=== PATIENT | female | born 1975 | race Caucasian/White ===

== ENCOUNTER → 2016-10-29 | Outpatient (CLI) | payer MEDICAID | LOC: FCPNEURO 21:00 | PROVIDERS: ATTEND Psychiatry & Neurology Sleep Medicine | DX: G47.33 Obstructive sleep apnea (adult) (pediatric) (principal) ==

== ENCOUNTER 2018-06-11 19:43 | Inpatient (IN) | payer MEDICAID ==
--- NOTE | 2018-06-11 20:13 | EDPHY ---
General - History Smoking Status: Former smoker Time Seen by Provider: 06/11/18 20:13 Narrative: CLINICAL IMPRESSION: Intractable headache, pupillary abnormality ASSESSMENT/PLAN: Patient is a 43-year-old female with multiple comorbidities who presents to the emergency department complaining of left-sided head pressure, red eyes and worsening pruritic rash. Patient is afebrile she is uncomfortable appearing however not toxic-appearing. Patient with notable injected conjunctiva bilaterally, mildly irregular pupils however equally reactive, mild left upper lid lag; neurological exam is otherwise grossly normal with no focal deficit. CBC revealed no evidence of leukocytosis, sed rate was within normal limits and her basic metabolic panel was grossly unremarkable. Intra-ocular pressures 19, within normal limits. 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 The patient was given multiple doses of IV narcotics with very minimal relief of her symptoms. It is unclear the exact etiology of her constellation of symptoms however there was no evidence of acute stroke, acute glaucoma, Morelia Dsouza syndrome, orbital or periorbital cellulitis. Sed rate was normal, less likely this could be temporal arteritis however the patient was given prednisone in the emergency department. She has had no constitutional symptoms to include fever or chills and has had no cough runny nose or congestion; do not suspect etiology such as measles. There were no signs of meningismus, do not suspect meningitis. Considered other etiologies including Lg syndrome, neuritis and trigeminal neuralgia. The patient remained hemodynamically stable, she will be admitted to the hospitalist service for further observation and management. I spoke directly with Dr. Rodríguez who will be the admitting physician. DIFFERENTIAL DX: Headache including but not limited to subarachnoid hemorrhage, migraine headache , tension headache, optic neuritis, trigeminal neuralgia, acute glaucoma and infectious causes such as meningitis, pharyngitis and sinusitis. ED COURSE: 2029: Discussed case with Dr. Gore, she will also evaluate this patient. 2058: Dr. Cha with Radiology called, CT head with no acute findings. 2137: IOP 19, normal limits 2203: Case discussed with hospitalist Dr. Nilton Gibson, she will be admitted under observation CHIEF COMPLAINT: Head pressure, facial swelling HPI: Patient is a 43-year-old female with multiple comorbidities including hypertension, diabetes, lupus, Ehrlos Danlos syndrome, mast cell disorder, chronic headaches and intermittent chronic rash who presents to the emergency department with worsening extremity rash over the last week as well as left- sided head pressure and swelling that has been escalating over the last 6 days. Patient reports last she started to develop some pressure located behind her left eye, along her christian radiating to the back of her head. She also noticed some redness of her bilateral eyes that has been present over the last week. She denies any eye pain or visual changes. She states that the pressure sensation is only left-sided, does not cross the midline. She has never experienced anything like this before, does not feel anything like her chronic headaches. She denies sudden onset, episodes are brief however escalating. She has had no focal weakness, difficulty with speech or ataxia. She reports associated swelling that started this weekend that is located over her christian. She denies any facial rash or lesions. She denies any neck stiffness, fever, chills, chest pain, cough or shortness of breath. She has been dealing with an extremity rash which they believe is linked to lupus, reports steroid therapy over a week ago and the rash got worse after she stopped her steroids. She describes the rash is very itchy. She has not started any new medications, there has been no changes in her detergents, lotions, soaps or other products. Patient also endorses currently being worked up for possible Chiari malformation in light of chronic neck pain. PMH: Diabetes, hypertension, Ehrlos Danlos syndrome, lupus, chronic headaches, mast cell disorder Family History: Noncontributory Social History: Denies illicit drug use, denies smoking REVIEW OF SYSTEMS: All other systems negative Constitutional: Decreased appetite. No fever, no chills. Eyes: Red eyes. No discharge, vision change. ENT: No sore throat, congestion, ear pain. Cardiovascular: No chest pain, no palpitations. Respiratory: No cough, no shortness of breath. Gastrointestinal: No abdominal pain, no vomiting, diarrhea. Genitourinary: No hematuria, dysuria, flank pain, pelvic pain Musculoskeletal: No back pain, joint swelling, joint pain, myalgias. Skin: Rash. Neurological: Left-sided head pressure. No dizziness, weakness. PHYSICAL EXAM: General Appearance: Obese, very uncomfortable however not toxic-appearing. HENT: Normocephalic, atraumatic. Bilateral external ears are normal. Bilateral tympanic membranes are normal with pearly mittal reflex. Patient with tenderness to palpation along the left christian, unable to palpate the temporal artery. There is some appreciable mild edema overlying the christian into the scalp. There is no overlying erythema or calor. Nares are clear, mucosa is pink. Oropharynx is clear, uvula is midline. There is no tonsillar enlargement or exudate. The dentition is normal. Eyes: Left pupil is slightly larger than the right pupil however equally reactive, no acute vision change, nystagmus, swelling, discharge, pain or photosensitivity. Left lid slightly slower and closure however full strength. Conjunctiva injected bilaterally. Neck: Supple, nontender, no lymphadenopathy, no midline pain, FROM, no meningismus. Respiratory: There are no retractions, lungs are clear to auscultation. Cardiac: Regular rate and rhythm, no murmurs or gallops. Gastrointestinal: Abdomen is soft, nontender, bowel sounds normal, no masses/ hernia, no rigidity, guarding or focal peritoneal findings. Neurological: Alert and oriented x 3, Neurological exam grossly normal with no focal deficit, normal gait no ataxia, DTR's intact, normal sensation and strength Skin: Warm, dry, no nodules on palpation. Bilateral upper and lower extremities with maculopapular erythematous rash predominantly noted on the upper inner arms. Musculoskeletal: Extremities are symmetrical, full range of motion, no tenderness, deformity, swelling, or erythema. Psychiatric: Patient is oriented X 3, there is no agitation. MEDICAL DECISION MAKING: Patient was seen independently. Secondary supervising physician at time of evaluation was Dr. Gore, she also evaluated this patient. Diagnosis: . New, requires workup Summary: See Assessment and Plan for summary of ED visit Clinical lab tests: ordered / reviewed. Independent visualization of images, tracing, or specimens: Yes. Decision to obtain medical records or history from someone other than the patient: Yes, patient's home healthcare Review / Summarize previous medical records: Yes Discussed patient with another provider: Yes, Dr. Gore, Dr. Rodríguez Patient Progress: Stable, admit . (Anahy Miguel) - Diagnostics Imaging Results: Imaging Impressions Head CT 06/11/18 20:28 Impression: No acute intracranial process. Findings and recommendations discussed with JUDY Russ at 2058 hour, 06/11. Head CTA 06/11/18 21:36 Impression: 1. 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 Otherwise, normal CT angiogram of the head and neck. 2. Enlarging left thyroid nodule. Recommend ultrasound characterization. Stenoses are calculated using [place] Symptomatic Carotid Endarterectomy Trial (NASCET) criteria. Findings and recommendations discussed with JUDY Russ at 2228 hour, 06/11. Neck CTA 06/11/18 21:36 Impression: 1. 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 Otherwise, normal CT angiogram of the head and neck. 2. Enlarging left thyroid nodule. Recommend ultrasound characterization. Stenoses are calculated using [place] Symptomatic Carotid Endarterectomy Trial (NASCET) criteria. Findings and recommendations discussed with JUDY Russ at 2228 hour, 06/11. Discussion: I evaluated and participated in the management of the patient. I also evaluated the patient independently. My co-signature indicates that I have reviewed this chart and I agree with the findings and plan of care as documented. My personal H&P findings include: 43-year-old female with multiple medical problems including most notably Erlher Danlos syndrome, hypertension, diabetes, recent diagnosis of lupus who is now presenting with left-sided headache associated with significant soft tissue swelling of the left cheek, left temporal area, injection in the left eye, left pupil slightly larger than the right, slight lid leg on the left, and tenderness across the temporal artery. Patient reports her headache pain has been present for about 5 days, but she develops intermittent worsening of the pain in a type of spasmodic pattern. Her examination is remarkable for slight erythema and visible soft tissue swelling of the left upper cheek, left lateral periorbital area, and across the left christian area. Bilateral conjunctival injection. No rashes noted on the face. Extraocular movements are intact. Pupil is: Left pupil 4 mm, right 3-2 mm , both pupils are briskly reactive. Extraocular movements are intact. Poor dentition is noted but no obvious dental caries. Initial concern was for temporal arteritis. Patient's sed rate is normal. She did receive 60 mg of prednisone by mouth. CT scan including CT a was negative for any type of intracranial hemorrhage, no obvious inflammatory process affecting the extraocular movements, no aneurysm affecting the 3rd cranial nerve is identified. Patient did not receive much in pain relief from Dilaudid as she is chronically on Dilaudid. She did receive fentanyl. She will be admitted to hospitalist service for further evaluation of her significant headache, cranial nerve palsy , facial swelling. (Lucita Gore) - Objective Vital Signs: Initial Vital Signs Temperature (C) 36.6 C 06/11/18 19:46 Heart Rate 96 06/11/18 19:46 Respiratory Rate 18 06/11/18 19:46 Blood Pressure 137/87 H 06/11/18 19:46 O2 Sat (%) 92 06/11/18 19:46 O2 Delivery Mode Nasal Cannula O2 (L/minute) 2 Allergies/Adverse Reactions: ketorolac tromethamine [From Toradol] Allergy (Mild, Verified 06/11/18 19:53) headache Penicillins Allergy (Mild, Verified 06/11/18 19:53) Rash ascorbic acid [From Cevalin] Allergy (Verified 06/11/18 19:53) gabapentin Allergy (Verified 06/11/18 19:53) pregabalin [From Lyrica] Allergy (Verified 06/11/18 19:53) rizatriptan [From Maxalt] Allergy (Verified 06/11/18 19:53) sumatriptan Allergy (Verified 06/11/18 19:53) tramadol Allergy (Verified 06/11/18 19:53) Home Medications: Medication Instructions Recorded Cholecalciferol Vit D3 [Vitamin D3 5,000 units PO DAILY 04/28/14 (OTC)] HYDROmorphone HCL [Exalgo] 64 mg PO DAILY@2300 04/28/14 Lisinopril/Hctz 10/12.5 mg 2 ea PO DAILY 04/28/14 [Zestoretic/Prinzide 10/12.5MG (RX)] Naproxen 500 mg PO BID 04/28/14 Ondansetron Odt [Zofran Odt 4 mg 8 mg PO TID PRN 04/28/14 (RX)] Tapentadol HCl [Nucynta] 100 mg PO Q4 PRN 04/28/14 Ondansetron Odt [Zofran Odt 4 mg 8 mg PO DAILY@04/29/14 (RX)] Laboratory Results: Laboratory Results 06/11/18 20:20 06/11/18 20:20 06/11/18 06/11/18 20:20 20:20 WBC 7.96 10^3/uL 10^3/uL (3.80-9.50) RBC 5.00 10^6/uL 10^6/uL (4.18-5.33) Hgb 13.6 g/dL g/dL (12.6-16.3) Hct 40.7 % % (38.0-47.0) MCV 81.4 fL L fL (81.5-99.8) MCH 27.2 pg L pg (27.9-34.1) MCHC 33.4 g/dL g/dL (32.4-36.7) RDW 14.2 % % (11.5-15.2) Plt Count 242 10^3/uL 10^3/uL (150-400) MPV 10.2 fL fL (8.7-11.7) Neut % (Auto) 50.2 % % (39.3-74.2) Lymph % (Auto) 38.2 % % (15.0-45.0) [place] % (Auto) 8.4 % % (4.5-13.0) Eos % (Auto) 2.6 % % (0.6-7.6) Baso % (Auto) 0.3 % % (0.3-1.7) Nucleat RBC Rel Count 0.0 % % (0.0-0.2) Absolute Neuts (auto) 4.00 10^3/uL 10^3/uL (1.70-6.50) Absolute Lymphs (auto) 3.04 10^3/uL H 10^3/uL (1.00-3.00) Absolute Monos (auto) 0.67 10^3/uL 10^3/uL (0.30-0.80) Absolute Eos (auto) 0.21 10^3/uL 10^3/uL (0.03-0.40) Absolute Basos (auto) 0.02 10^3/uL 10^3/uL (0.02-0.10) Absolute Nucleated RBC 0.00 10^3/uL 10^3/uL (0-0.01) Immature Gran % 0.3 % % (0.0-1.1) Immature Gran # 0.02 10^3/uL 10^3/uL (0.00-0.10) ESR 19 MM/HR MM/HR (0-20) Sodium 137 mEq/L mEq/L (135-145) Potassium 4.9 mEq/L mEq/L (3.5-5.2) Chloride 103 mEq/L mEq/L (97-110) Carbon Dioxide 29 mEq/l mEq/l (22-31) Anion Gap 5 mEq/L L mEq/L (6-14) BUN 9 mg/dL mg/dL (7-23) Creatinine 0.7 mg/dL mg/dL (0.6-1.0) Estimated GFR > 60 Glucose 94 mg/dL mg/dL (70-100) Calcium 9.1 mg/dL mg/dL (8.5-10.4) Total Bilirubin 0.9 mg/dL mg/dL (0.1-1.4) AST 71 IU/L H IU/L (14-46) ALT 22 IU/L IU/L (9-52) Alkaline Phosphatase 92 IU/L IU/L (38-126) Total Protein 7.8 g/dL g/dL (6.3-8.2) Albumin 4.4 g/dL g/dL (3.5-5.0) Specimen Hemolysis 208 Medications Given: Discontinued Medications Fentanyl (Sublimaze) 50 mcg IVP ONCE ONE Stop: 06/11/18 21:25 Last Admin: 06/11/18 21:48 Dose: 50 mcg Fentanyl (Sublimaze) 50 mcg IVP ONCE ONE Stop: 06/11/18 22:15 Last Admin: 06/11/18 22:19 Dose: 50 mcg Hydromorphone HCl (Dilaudid) 0.5 mg IVP EDNOW ONE Stop: 06/11/18 20:59 Last Admin: 06/11/18 21:13 Dose: 0.5 mg Prednisone (Prednisone) 60 mg PO EDNOW ONE Stop: 06/11/18 20:53 Last Admin: 06/11/18 21:13 Dose: 60 mg Departure - Departure Disposition: [facility] Clinical Impression: Facial swelling, Anisocoria, Lid lag Headache Qualifiers: Headache type: unspecified Headache chronicity pattern: acute headache Intractability: intractable Qualified Code(s): R51 - Headache Condition: Fair
[2018-06-11 20:44] LABS: PLATELET COUNT 242 10^3/uL (150-400)
[2018-06-11] MEDS ORDERED: predniSONE 20 MG TAB PO ONE (20:52)
[2018-06-11] MEDS ORDERED: HYDROmorphONE/DILAUDID 2 MG/ML INJ IVP ONE (20:58)
[2018-06-11] MEDS ORDERED: fentaNYL 100 MCG/2 ML INJ IVP ONE ×2 (21:24→22:14)
[2018-06-11] MEDS ORDERED: IOHEXOL 350mgI/ML (OMNIPAQUE) 150 ML BTL IV ONE (21:40)
[2018-06-11] MEDS ORDERED: ONDANSETRON DISINTEGRATING 4 MG TAB PO PRN (22:58)
[2018-06-11] MEDS ORDERED: diphenhydrAMINE 25 MG CAP PO PRN (22:58)
[2018-06-11] MEDS ORDERED: HYDROCODONE/APAP 5/325 TAB PO PRN (22:58)
[2018-06-11] MEDS ORDERED: ACETAMINOPHEN 325 MG TAB PO PRN (22:58)
[2018-06-11] MEDS ORDERED: ONDANSETRON 4 MG/2 ML VIAL IVP PRN (22:58)
[2018-06-12] MEDS: NS 1,000 ML IV SCH ×2 (00:26→18:42)
[2018-06-12] MEDS: LORazepam 2 MG/ML INJ IVP PRN ×2 (00:26→11:10)
[2018-06-12] MEDS ORDERED: hydrOXYzine HCL 25 MG TAB PO PRN (01:42)
[2018-06-12] MEDS ORDERED: DIPHENHYDRAMINE CREAM TP PRN (01:42)
--- NOTE | 2018-06-12 01:42 | PDGENHP ---
History and Physical - Chief Complaint left temporal/facial pain and swelling, blurry vision - History of Present Illness Source - Patient provides history and appears reliable. Patient's adult daughter at bedside supplements details. EMR was reviewed and case discussed with accepting hospitalist any ED provider. HPI-this is a very pleasant 43-year-old female with past medical history significant for either Danlos syndrome, mast cell activation syndrome, diabetes , chronic pain, complex migraine headache who presents emergency department today with complaints of 1 week history of worsening left temporal pain and sensitivity. Patient reports chronic blurry vision nothing acute. She reports her temporal pain is worsened with any kind of brushing or touch. She has not had any fevers or chills. In the last several days patient also has noted increasing swelling over the left side of her shinto forehead and eye. Daughter notes that she is not able to close her eyelid very well. Patient denies any vision loss in left eye but it has been a little irritated. 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 Patient has been noting some increased swelling in her hands as well as that left side of her face. She was recently reported to have had a ERIC screening that returned positive but she is waiting the titers. Additionally patient has reported intermittent episodes of right- sided weakness. She states that she was initially diagnosed with myasthenia gravis however she subsequently was seen by Neurology during a hospital admission in April of was diagnosed with complex migraines. She notes that these symptoms seemed to get exacerbated when she is increasingly fatigued. She also reports that over the last in several weeks she has developed some intermittent dysphagia. She feels like solids get stuck in her throat. She has a follow-up appointment with GI in the upcoming weeks. Patient is concerned that she may have developed trigeminal neuralgia. Patient also is complaining of a rash that is extending from her on the distal arm to her axilla and chest along the upper part of her left arm. She states that is quite itchy. It is worse at nighttime. She is trying not to scratch Benadryl and Atarax have not been helping with her symptoms significantly. Patient reports that she did soak in Epsom salt and that did seem to the temporarily alleviate her symptoms. She denies any new exposures to detergents, lotions or perfumes. History Information - Allergies/Home Medication List Allergies/Adverse Reactions: ketorolac tromethamine [From Toradol] Allergy (Mild, Verified 06/11/18 19:53) headache Penicillins Allergy (Mild, Verified 06/11/18 19:53) Rash ascorbic acid [From Cevalin] Allergy (Verified 06/11/18 19:53) gabapentin Allergy (Verified 06/11/18 19:53) pregabalin [From Lyrica] Allergy (Verified 06/11/18 19:53) rizatriptan [From Maxalt] Allergy (Verified 06/11/18 19:53) sumatriptan Allergy (Verified 06/11/18 19:53) tramadol Allergy (Verified 06/11/18 19:53) I have personally reviewed and updated: family history, medical history, social history, surgical history - Past Medical History Additional medical history: Dm 2, Becki-Danlos, 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 Patient reports that she has received Botox injections in the past for her migraines. - Surgical History Additional surgical history: x3, tonsillectomy adenoidectomy, appendectomy - Family History Additional family history: Multiple family members with thyroid dysfunction. Mother with history of Becki-Danlos, mast cell dysfunction, dm 2, heart disease , cirrhosis due to HCV. - Social History Smoking Status: Former smoker Alcohol Use: None Drug Use: Marijuana (Topical) Review of Systems Review of Systems: ROS: 10pt was reviewed & negative except for what was stated in HPI & below Constitutional: Reports: no symptoms EENMT: Reports: no symptoms Cardiac: Reports: no symptoms Respiratory: Reports: no symptoms Gastrointestinal: Reports: nausea. Denies: abdominal pain, other (Decreased appetite. Patient reports that she is unable to keep solid foods down) Genitourinary: Reports: no symptoms Muscolosketal: Reports: back pain, joint pain (His bilateral hand), neck pain ( Posterior neck pain, suboccipital.) Skin: Reports: rash (See HPI) Neurological: Reports: headache, paresthesia (Left shinto & forehead), weakness (Right extremities See HPI) Hematologic/Lymphatic: Reports: no symptoms Physical Exam Physical Exam: Selected Entries 06/11/18 19:46 Blood Pressure Automatic Method Heart Rate 96 Respiratory 18 Rate O2 Sat (%) 92 Temperature (C) 36.6 C Blood Pressure 137/87 H Mean Arterial 103 H Pressure (MAP) O2 Delivery Room Air Mode Temperature Oral Source Temp Pulse Resp BP Pulse Ox 36.7 C 85 17 153/98 H 92 06/12/18 00:00 06/12/18 00:00 06/12/18 00:00 06/12/18 00:00 06/12/18 00:00 O2 (L/minute) 2 Constitutional: chronically ill appearing, obese, other (NAD. Pleasant obese female is lying quietly in bed. She wakes easily to name. Her daughter is at bedside.) Eyes: EOMI, No PERRL (Patient pupils are asymmetric, with the left pupil greater than the right. Lens reflex is appreciated on the right eye.), No scleral injection Ears, Nose, Mouth, Throat: moist mucous membranes, poor dentition (Dentition intact, gingivitis. No evidence of abscess.), other (No nasal discharge.) Cardiovascular: regular rate and rhythym, no murmur, rub, or gallop (Slightly distant heart sounds.), pulses symmetric bilaterally, No edema Peripheral Pulses: 2+: dorsalis-pedis (R), dorsalis-pedis (L) Respiratory: no respiratory distress, no rales or rhonchi (Exam limited due to body habitus lung sounds are slightly distant.), No expiratory wheeze, No inspiratory crackles Gastrointestinal: normoactive bowel sounds, soft, non-tender abdomen, no palpable masses, No guarding, No distension Genitourinary: no bladder tenderness, No pozo in urethra Skin: warm, normal color, rash (Patient with all circumscribed maculopapular lesions. No vesicular lesions. No pustular lesions. There is no evidence of tracking and patient's rash does not localized to her digits or creases.) Musculoskeletal: full muscle strength (Patient able to sit up independently. Moves all extremities.), pain with ROM (Patient complains of some stiffness and difficulties moving with her fingers.), No generalized weakness Neurologic: AAOx3, sensation intact bilaterally, other (hyperesthesia on the left shinto.) Psychiatric: interacting appropriately, not encephalopathic, thought process linear, anxious, other (Patient very pleasant cooperative.), No poor insight, No poor judgement, No poor memory Lab Data & Imaging Review 06/12/18 05:15 06/12/18 05:15 WBC 7.96 10^3/uL (3.80-9.50) 06/11/18 20:20 RBC 5.00 10^6/uL (4.18-5.33) 06/11/18 20:20 Hgb 13.6 g/dL (12.6-16.3) 06/11/18 20:20 Hct 40.7 % (38.0-47.0) 06/11/18 20:20 MCV 81.4 fL (81.5-99.8) L 06/11/18 20:20 MCH 27.2 pg (27.9-34.1) L 06/11/18 20:20 MCHC 33.4 g/dL (32.4-36.7) 06/11/18 20:20 RDW 14.2 % (11.5-15.2) 06/11/18 20:20 Plt Count 242 10^3/uL (150-400) 06/11/18 20:20 MPV 10.2 fL (8.7-11.7) 06/11/18 20:20 Neut % (Auto) 50.2 % (39.3-74.2) 06/11/18 20:20 Lymph % (Auto) 38.2 % (15.0-45.0) 06/11/18 20:20 [place] % (Auto) 8.4 % (4.5-13.0) 06/11/18 20:20 Eos % (Auto) 2.6 % (0.6-7.6) 06/11/18 20:20 Baso % (Auto) 0.3 % (0.3-1.7) 06/11/18 20:20 Nucleat RBC Rel Count 0.0 % (0.0-0.2) 06/11/18 20:20 Absolute Neuts (auto) 4.00 10^3/uL (1.70-6.50) 06/11/18 20:20 Absolute Lymphs (auto) 3.04 10^3/uL (1.00-3.00) H 06/11/18 20:20 Absolute Monos (auto) 0.67 10^3/uL (0.30-0.80) 06/11/18 20:20 Absolute Eos (auto) 0.21 10^3/uL (0.03-0.40) 06/11/18 20:20 Absolute Basos (auto) 0.02 10^3/uL (0.02-0.10) 06/11/18 20:20 Absolute Nucleated RBC 0.00 10^3/uL (0-0.01) 06/11/18 20:20 Immature Gran % 0.3 % (0.0-1.1) 06/11/18 20:20 Immature Gran # 0.02 10^3/uL (0.00-0.10) 06/11/18 20:20 ESR 19 MM/HR (0-20) 06/11/18 20:20 Sodium 137 mEq/L (135-145) 06/11/18 20:20 Potassium 4.9 mEq/L (3.5-5.2) 06/11/18 20:20 Chloride 103 mEq/L (97-110) 06/11/18 20:20 Carbon Dioxide 29 mEq/l (22-31) 06/11/18 20:20 Anion Gap 5 mEq/L (6-14) L 06/11/18 20:20 BUN 9 mg/dL (7-23) 06/11/18 20:20 Creatinine 0.7 mg/dL (0.6-1.0) 06/11/18 20:20 Estimated GFR > 60 06/11/18 20:20 Glucose 94 mg/dL (70-100) 06/11/18 20:20 Calcium 9.1 mg/dL (8.5-10.4) 06/11/18 20:20 Total Bilirubin 0.9 mg/dL (0.1-1.4) 06/11/18 20:20 AST 71 IU/L (14-46) H 06/11/18 20:20 ALT 22 IU/L (9-52) 06/11/18 20:20 Alkaline Phosphatase 92 IU/L (38-126) 06/11/18 20:20 Total Protein 7.8 g/dL (6.3-8.2) 06/11/18 20:20 Albumin 4.4 g/dL (3.5-5.0) 06/11/18 20:20 Specimen Hemolysis 208 06/11/18 20:20 Imaging Review: Head WO IV Contrast History: Left head pressure, temporal artery pain. Comparison: None available. Technique: Dose reduction techniques were utilized. Findings: No acute large vessel ischemic infarct, hemorrhage, or extra-axial fluid collection. Lateral ventricles are normal in size and configuration for the patient's stated age. There is no midline shift and the basal cisterns are not effaced. The mittal-white junction is distinct. There is no displaced skull fracture. The paranasal sinuses and mastoid air cells are clear. Impression: No acute intracranial process. Findings and recommendations discussed with JUDY Russ at 2058 hour, 06/11. Dictated By: Javier Cha MD CT Angiogram Head and Neck With Contrast History: Head ache. Comparison: Unenhanced CT head same day. April 29, 2014 Technique: Axial contrast-enhanced images were obtained from the vertex through the thoracic inlet following the uneventful intravenous administration of 85 mL Isovue-370. Multiplanar reformations were performed. Dose reduction techniques were utilized. Findings: Angiogram Head: The A1 and A2 segments of the anterior cerebral arteries are patent. The M1 and M2 segments of the middle cerebral arteries are patent. The anterior communicating artery is normal. The basilar artery and P1 and P2 segments of the posterior cerebral arteries are patent. No significant stenoses are identified. There is no visible aneurysm. There is no visible hemorrhage or vascular malformation. Angiogram Neck: The visible aorta is normal caliber. Conventional three-vessel arch anatomy is present. There is no significant stenosis in the common and internal carotid arteries . There is no significant vertebral artery stenosis . Hypoplastic versus spastic distal left vertebral artery noted. The subclavian arteries are patent in their visualized extent. No pathologically enlarged lymph nodes are identified. No aggressive osseous lesions are present. The lung apices are clear. There is a 1.3 cm left thyroid nodule which appears increased in size since 2013. Impression: 1. 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 Otherwise, normal CT angiogram of the head and neck. 2. Enlarging left thyroid nodule. Recommend ultrasound characterization. Stenoses are calculated using [place] Symptomatic Carotid Endarterectomy Trial (NASCET) criteria. Findings and recommendations discussed with JUDY Russ at 2228 hour, 06/11. Visualized and Interpreted imaging results: Yes Assessment & Plan Assessment: this is a very pleasant 43-year-old female with past medical history significant for either Danlos syndrome, mast cell activation syndrome, diabetes , chronic pain, complex migraine headache who presents emergency department today with complaints of 1 week history of worsening left temporal pain and sensitivity. #Anisocoria (Acute) with left temporal pain/paresthesias. ddx including Lg' s syndrome vs. myesthenia vs trigeminal neuralgia vs. botulism (no recent botox injections) vs less likely temporal arteritis vs less likely CVA. CT head, CTA Head and neck with hypoplastic vs spastic distal vertebral artery otherwise normal. neurology consult requested. #Facial swelling/pain (Acute) left - no evidence of cellulitis or report of dental abscess. Steroid #thyroid nodule - noted on CT of neck. US will be ordered. check TSH. #dysphagia - dietary consult, ST eval. #Rash - ddx mast cell response vs folliculitis. no evidence of tracking to suggest scabies. continue with anti-histamines, topical and oral steroids for now. #Becki Danlos #migraine AVITIA - supportive care #chronic pain - continue pt oxy #DM II - ADA diet. insulin sliding scale. FEN - ADA diet. monitor electrolytes. PPX - SCDs. consider lovenox if should stay additional day COR - FULL Dispo - Patient admitted to observation status pending studies as above and neurology recommendations.
[2018-06-12] MEDS: HYDROmorphONE/DILAUDID 1 MG/ML INJ IVP PRN ×3 (01:45→11:11)
[2018-06-12] MEDS: oxyCODONE IR 15 MG TAB PO PRN ×3 (01:45→12:32)
[2018-06-12 05:39] LABS: PLATELET COUNT 231 10^3/uL (150-400)
[2018-06-12] MEDS: HYDROCORTISONE 1% CREAM TP SCH ×2 (08:01→20:14)
[2018-06-12] MEDS ORDERED: predniSONE 20 MG TAB PO SCH (09:00)
[2018-06-12] MEDS ORDERED: HYOSCYAMINE SULFATE 0.125 MG TAB PO PRN (09:37)
--- NOTE | 2018-06-12 10:00 | NEUROPROG ---
Assessment: [id number] - Neurology Consult: - CC: Mary Waddell consulted neurology for left temporal/facial pain and blurry vision. Results placed in EMR for her review. - HPI: Pt with prior history of migraines reports 1 week of worsening left temporal pain associated with blurry vision when she presented to [facility] ER on 06/11/18. She also felt she has swelling over the left judaism region. Pt also noted intermittent episodes of right sided weakness. She reported seeing neurology in April 2018 and being diagnosed with complex migraines. Head CT and CTA head/neck showed no acute findings but did show left vert with hypoplastic versus spastic findings. ESR 19 (normal) so unlikely to be giant cell temporal arteritis (young age, low ESR). I initially saw pt on 06/12/18. Neurologic exam normal and no clear swelling around left temporal lobe. I suspected her head pain and intermittent right sided weakness is from her complex migraines. However, recommend brain MRI wwo to ensure no underlying structural problem. Pt has a number of complex autoimmune conditions so this may be involved in her symptoms. I would also recommend having an radio aerial installer evaluate her left eye to ensure no uveitis. If brain MRI wwo unremarkable then I would recommend pt have her PCM refer her to [facility] Neurology Department to establish care with a neurologist at a tertiary care center given her complicated medical history. - PMHx: DM2, EDS, AI uveitis in R eye, mast cell activation syndrome, migraines associated with right sided weakness - SHx: former tobacco use FHx: thyroid dysfunction, EDS, AI issues - ROS: Pt denied acute fever, total vision loss, active severe chest pain, respiratory failure, total body severe rash, total bowel/bladder incontinence, psychosis, active seizures, or active bleeding - O: VS reviewed General: Alert Eyes: Fundoscopic exam not able to visualize optic disks CV: Heart RRR, no murmur, no carotid bruit Lungs: Clear to auscultation bilaterally, no rhonchi or rales Neuro: - Mental: . Oriented x person/place/date . concentration appears normal . speech fluency/comprehension normal . memory appears normal . fund of knowledge appear intact - Cranial Nerves: . II: PERRL, VFFTC . III/IV/: EOMI, no nystagmus, normal smooth pursuits, no Ptosis . V: facial sensation intact to LT . VII: face symmetric to eye closure and smile . VIII: hearing intact to conversation . IX/X: uvula raises symmetrically . XI: SCM 5/5 B/L strength . XII: tongue protrudes midline w/nl strength - Motor: . Tone: normal tone in all 4 extremity . Strength: no pronator drift, strength 5/5 throughout (B/L delt, bic, tri, hand railroad hand, hf/he, df/pf) - Reflexes: B/L bic 2/4 - Sensory: all 4 extremity intact to light touch - Coord: [id number] wnl, VEL wnl, [id number] wnl - Gait: deferred - Labs: 06/11/18- CBC unremarkable, ESR 19, Chem AST 71H - Rads: 06/11/18- Head CT wo: no acute intracranial process (I personally visualized the images on 06/12/18) 06/11/18- CTA head/neck: Hypoplastic versus spastic left distal vertebral artery. Otherwise, normal CT angiogram of the head and neck. Enlarging left thyroid nodule - Assessment: 1. Complex Migraines with episodic right sided weakness - 2. Thyroid nodule noted incidentally on head/neck CTA on 06/11/18: Defer management to hospitalist - 3. Autoimmune illnesses - 4. Possible spastic versus left distal vert artery: likely a benign finding but could be vasospasm from migraine disorder (does not require any treatment in that case). However, pt does have complicated past medical history of autoimmune problems so I recommend pt have her PCM refer her to [facility] Neurology Department to establish care with a neurologist at a tertiary care center given her complicated medical history. She should bring copies of the head/neck CTA and all her hospital records for comprehensive review to determine any evaluation for rare neurologic etiology. - Plan: - Brain MRI wwo - Recommend ophthalmology evaluation of left eye to ensure no uveitis - Recommend pt have her PCM refer her to [facility] Neurology Department to establish care with a neurologist at a tertiary care center given her complicated medical history. Objective: Vital Signs Temp Pulse Resp BP Pulse Ox 36.8 C 84 17 139/85 H 95 06/12/18 07:18 06/12/18 07:18 06/12/18 07:18 06/12/18 07:18 02/06/19 07:18 Laboratory Results 06/12/18 05:15 06/12/18 05:15 06/11/18 06/12/18 06/13/18 05:59 05:59 05:59 Intake Total 700 548 Output Total 550 Balance 150 548 Allergies/Adverse Reactions: ketorolac tromethamine [From Toradol] Allergy (Mild, Verified 06/11/18 19:53) headache Penicillins Allergy (Mild, Verified 06/11/18 19:53) Rash ascorbic acid [From Cevalin] Allergy (Verified 06/11/18 19:53) gabapentin Allergy (Verified 06/11/18 19:53) pregabalin [From Lyrica] Allergy (Verified 06/11/18 19:53) rizatriptan [From Maxalt] Allergy (Verified 06/11/18 19:53) sumatriptan Allergy (Verified 06/11/18 19:53) tramadol Allergy (Verified 06/11/18 19:53)
[2018-06-12] MEDS ORDERED: LORazepam 2 MG/ML INJ IVP ONE (14:00)
[2018-06-12] MEDS ORDERED: HYDROmorphONE/DILAUDID 1 MG/ML INJ IVP ONE (14:00)
--- NOTE | 2018-06-12 16:30 | HOSPPROG ---
Hospitalist Progress Note Assessment/Plan: 43-year-old female with past medical history of mast cell activation syndrome, a L Danlos syndrome, chronic pain, admitted with left-sided facial pain and swelling. Left facial pain- neurology has seen patient, and recommends MRI brain, and referral to [facility] Neurology as outpatient. Patient had a CTA head and neck last night with a hypoplastic versus spastic distal vertebral artery that is likely a benign finding per Neurology but given her complex medical history thinks MRI brain is appropriate along with referral to Neurology at [facility]. Also neurology recommends ophthalmology evaluation to rule out uveitis. -MRI brain pending -neurology consult -continue home oxycodone Thyroid nodule-incidentally noted on CT. TSH mildly low. Check T4 Mass cell activation syndrome- continue home medications. Type 2 diabetes- insulin-dependent, not tolerating oral well. Hold home insulin dosage and cover with sliding scale Migraine headache- p.r.n. Meds ordered Chronic pain- continue home oxycodone 30 mg twice daily Fluids-tolerating p.o. Electrolytes-within normal limits Nutrition-diabetic diet Cor-full code Dispo- observation for left-sided facial pain Subjective: Pain in left side of face. Generalized pain is worse when she leans back Objective: Vital Signs Temp Pulse Resp BP Pulse Ox 36.4 C 106 H 17 150/80 H 93 06/12/18 15:49 06/12/18 15:49 06/12/18 15:49 06/12/18 15:49 06/12/18 15:49 Laboratory Results 06/12/18 05:15 06/12/18 05:15 06/11/18 06/12/18 06/13/18 05:59 05:59 05:59 Intake Total 700 548 Output Total 550 Balance 150 548 - Physical Exam Constitutional: no apparent distress, appears nourished, not in pain Eyes: PERRL, anicteric sclera, EOMI Ears, Nose, Mouth, Throat: moist mucous membranes, hearing normal, ears appear normal, no oral mucosal ulcers Cardiovascular: regular rate and rhythym, no murmur, rub, or gallop Respiratory: no respiratory distress, no rales or rhonchi, clear to auscultation Gastrointestinal: normoactive bowel sounds, soft, non-tender abdomen, no palpable masses Genitourinary: no bladder fullness, no bladder tenderness, no renal bruits Skin: no rashes or abrasions, no fluctuance, no induration Musculoskeletal: full muscle strength, no muscle tenderness, normal joint ROM Neurologic: AAOx3, sensation intact bilaterally Psychiatric: interacting appropriately, not anxious, not encephalopathic, thought process linear Lymph, Heme, Immunologic: no cervical LAD, no supraclavicular LAD ICD10 Worksheet Patient Problems: Problems Problem Status Onset Anisocoria Acute Facial swelling Acute Headache Acute Lid lag Acute
--- NOTE | 2018-06-12 16:56 | ASMTCMCOM ---
CM Note CM Note Notes: Pt in with intractable AVITIA, pupillary abnormalities, has adult dghtr involved in care. Neurology consulting, rec pt see quill stripper and go to [facility] Neurology Dept. BLUEPRINT DUPLICATOR rec home, OT rec pending. CM to follow. Date Signed: 06/12/2018 04:55 PM Electronically Signed By:SURJIT Mims
[2018-06-12] MEDS ORDERED: GADOBUTROL 10 ML VIAL IVP ONE (16:58)
[2018-06-12] MEDS ORDERED: oxyCODONE IR 15 MG TAB PO PRN (18:26)
--- NOTE | 2018-06-12 18:27 | PDMN ---
Medical Necessity Medical necessity: [facility] General Admission: 43 yo w/ worsening L temporal pain and sensitivity. Admit to OBS initially for anisocoria (acute) w/ L temporal pain/pareshesias, acute L facial swelling, noted thyroid nodule on imaging, dysphagia and rash to arm/axilla/chest. Neuro consulted, brain MRI pending, change to IP status as pt requires additional MN for ongoing dx testing , monitoring and tx given her complex medical hx. Pt remains on IVF and freq IV Dilaudid for pain management. 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 Change to IP status 06/12/18@1705 per MD order.
[2018-06-12] MEDS: FAMOTIDINE 20 MG TAB PO SCH (20:12)
[2018-06-12] MEDS: oxyCODONE CR 30 MG TAB PO SCH (20:12)
[2018-06-12] MEDS ORDERED: hydrOXYzine HCL 25 MG TAB PO SCH (21:00)
[2018-06-13 07:49] VITALS: BP 124/61
[2018-06-13] MEDS: FAMOTIDINE 20 MG TAB PO SCH (08:46)
[2018-06-13] MEDS: oxyCODONE CR 30 MG TAB PO SCH (08:46)
[2018-06-13] MEDS: HYDROCORTISONE 1% CREAM TP SCH (08:51)
[2018-06-13] MEDS ORDERED: valACYclovir 500 MG TAB PO SCH (09:00)
[2018-06-13] MEDS ORDERED: LISINOPRIL 40 MG TAB PO SCH (09:00)
[2018-06-13] MEDS ORDERED: MONTELUKAST SODIUM 10 MG TAB PO SCH (09:00)
[2018-06-13] MEDS ORDERED: HYDROCHLOROTHIAZIDE 25 MG TAB PO SCH (09:00)
[2018-06-13] MEDS ORDERED: FLUTICASONE HFA 110 MCG MDI IH SCH (09:00)
--- NOTE | 2018-06-13 10:10 | NEUROPROG ---
Assessment: [id number] - Neurology Consult: - CC: F/U for complex migraine - Narrative Summary: Pt with prior history of migraines reports 1 week of worsening left temporal pain associated with blurry vision when she presented to [facility] ER on 06/11/18. She also felt she has swelling over the left taoism region. Pt also noted intermittent episodes of right sided weakness. She reported seeing neurology in April 2018 and being diagnosed with complex migraines. Head CT and CTA head/neck showed no acute findings but did show left vert with hypoplastic versus spastic findings. ESR 19 (normal) so unlikely to be giant cell temporal arteritis (young age, low ESR). I initially saw pt on 06/12/18. Neurologic exam normal and no clear swelling around left temporal lobe. I suspected her head pain and intermittent right sided weakness is from her complex migraines. However, recommend brain MRI wwo to ensure no underlying structural problem. Pt has a number of complex autoimmune conditions so this may be involved in her symptoms. I would also recommend having an children's minister evaluate her left eye to ensure no uveitis. If brain MRI wwo unremarkable then I would recommend pt have her PCM refer her to [facility] Neurology Department to establish care with a neurologist at a tertiary care center given her complicated medical history. - HPI: F/U 06/13/18. Brain MRI wwo unremarkable. Her headache symptoms with associated blurry vision and intermittent right sided weakness seems most consistent with complex migraines however pt feels there may be another diagnosis so would like to eventually get established with a tertiary care center for a comprehensive second opinion. This seems reasonable. No further neurologic w/u needed, neurology will sign off. 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 Otherwise, normal CT angiogram of the head and neck. Enlarging left thyroid nodule 06/12/18- Brain MRI wwo: unremarkable - Assessment: 1. Complex Migraines with episodic right sided weakness - 2. Thyroid nodule noted incidentally on head/neck CTA on 06/11/18: Defer management to hospitalist - 3. Autoimmune illnesses - 4. Possible spastic versus left distal vert artery: likely a benign finding but could be vasospasm from migraine disorder (does not require any treatment in that case). However, pt does have complicated past medical history of autoimmune problems so I recommend pt have her PCM refer her to [facility] Neurology Department to establish care with a neurologist at a tertiary care center given her complicated medical history. She should bring copies of the head/neck CTA and all her hospital records for comprehensive review to determine any evaluation for rare neurologic etiology. - Plan: - Recommend ophthalmology evaluation of left eye to ensure no uveitis (it seems reasonable if needed to have this done 1-2 days after hospital discharge if not able to be done inpatient) - Recommend pt have her PCM refer her to [facility] Neurology Department to establish care with a neurologist at a tertiary care center given her complicated medical history, she should bring a copy of all her medical records and imaging from this admission - No further inpatient neurologic w/u needed, neurology will sign off - 35 min spent with patient, majority of time spent counseling on her condition and future evaluation options Objective: Vital Signs Temp Pulse Resp BP Pulse Ox 36.8 C 64 17 124/61 H 95 06/13/18 07:49 06/13/18 07:49 06/13/18 07:49 06/13/18 07:49 06/13/18 07:49 06/12/18 06/13/18 06/14/18 05:59 05:59 05:59 Intake Total 200 Output Total 200 Balance 0 Allergies/Adverse Reactions: ketorolac tromethamine [From Toradol] Allergy (Mild, Verified 06/11/18 19:53) headache Penicillins Allergy (Mild, Verified 06/11/18 19:53) Rash ascorbic acid [From Cevalin] Allergy (Verified 06/11/18 19:53) gabapentin Allergy (Verified 06/11/18 19:53) pregabalin [From Lyrica] Allergy (Verified 06/11/18 19:53) rizatriptan [From Maxalt] Allergy (Verified 06/11/18 19:53) sumatriptan Allergy (Verified 06/11/18 19:53) tramadol Allergy (Verified 06/11/18 19:53)
[2018-06-13] MEDS ORDERED: CETIRIZINE 10 MG TAB PO SCH (21:00)
== END 2018-06-13 10:56 | disposition home or self-care (01) | DRG 54 ==
LOC: F3N 23:00 → OBSVTOIN 06-12 17:05
PROVIDERS: ADMIT Internal Medicine; ATTEND Internal Medicine
DX: G43.419 Hemiplegic migraine, intractable, without status migrainosus (principal); D89.40 Mast cell activation, unspecified; M32.9 Systemic lupus erythematosus, unspecified; Q79.6 Ehlers-Danlos syndromes; I10 Essential (primary) hypertension; E11.9 Type 2 diabetes mellitus without complications; G89.29 Other chronic pain; R21 Rash and other nonspecific skin eruption; E04.1 Nontoxic single thyroid nodule
CPT/HCPCS: 92610-GN; 96374; 97166-GO; 97535-GO; A9585; G0378; J1170; J2060; J3010; J7512; Q9967